=== PATIENT | male | born 1985 | race Caucasian/White ===

== ENCOUNTER 2018-11-13 00:40 | Emergency (ER) | payer OTHER ==
[2018-11-13] MEDS ORDERED: NS 1,000 ML IV ONE (00:45)
[2018-11-13] MEDS ORDERED: OLANZapine DISINTEGR 5 MG TAB PO ONE (00:45)
[2018-11-13] MEDS ORDERED: OLANZapine 10 MG/2 ML VIAL IM ONE (00:48)
--- NOTE | 2018-11-13 00:48 | EDPHY ---
H & P Source: Patient, Police, EMS - Medical/Surgical History Hx Asthma: No Hx Chronic Respiratory Disease: No Hx Diabetes: No Hx Cardiac Disease: No Hx Renal Disease: No Hx Cirrhosis: No Hx Alcoholism: No Other PMH: Herniated disc - Social History Smoking Status: Never smoked Time Seen by Provider: 11/13/18 00:45 HPI/ROS: HPI CHIEF COMPLAINT: Substance abuse, alcohol intoxication, agitated behavior, M1 hold by police ?Psychosis HISTORY OF PRESENT ILLNESS: Patient 33-year-old male, presents emergency room intoxicated with alcohol, possibly other substances. Neighbors called 911, the patient has a history of PTSD, reports alcohol tonight, unknown other substance. When I go to evaluate the patient denies any complaints to me however states that nothing is wrong. He denies taking anything tonight. He arrives to the emergency room in handcuffs in police custody. Arrive somewhat agitated. Refused to answer many questions. Appears intoxicated. Neighbors called 911 for noise disturbance. Past Medical History: PTSD. ?psychosis Past Surgical History: Unknown surgical history Social History: alcohol this evening. Possible other substance. Family History: Noncontributory ROS REVIEW OF SYSTEMS: Limited due to mental state, limited due to intoxication Exam Constitutional intoxicated, smells of alcohol, triage nursing summary reviewed , vital signs reviewed, awake/alert. Eyes normal conjunctivae and sclera, EOMI, PERRLA. 6 mm equal minimally reactive to light, HENT normal inspection, atraumatic, moist mucus membranes, no epistaxis, neck supple/ no meningismus, no raccoon eyes. Respiratory clear to auscultation bilaterally, normal breath sounds, no respiratory distress, no wheezing. Cardiovascular rate normal, regular rhythm, no murmur, no edema, distal pulses normal. Gastrointestinal soft, non-tender, no rebound, no guarding, normal bowel sounds, no distension, no pulsatile mass. Genitourinary no CVA tenderness. Musculoskeletal no midline vertebral tenderness, full range of motion, no calf swelling, no tenderness of extremities, no meningismus, good pulses, neurovascularly intact. Skin pink, warm, & dry, no rash, skin atraumatic. Neurologic awake and alert, somewhat agitated, moves everything, Psychiatric normal mood/affect. Heme/Lymph/Immune no lymphadenopathy. Differential Diagnosis: Includes but is not limited to in a particular order acute psychosis, drug intoxication, alcohol intoxication, LSD, methamphetamine Medical Decision Making: Plan for this patient IV establishment IV fluid bolus , cardiac/vascular sonographer, pulse ox, Zyprexa, IV fluids, basic labs, re-evaluate. Re-evaluation: 407: Patient acutely agitated. Ordered 2 mg p.o. Ativan. Patient received Zyprexa earlier. Patient re-evaluated 4:20 a.m.. Patient was sleeping. Resting comfortably. 0636AM: Signed over to Dr. Olmedo at 7am. Pending eval. (Hilario Blair) Constitutional: Initial Vital Signs Temperature (C) 36.8 C 11/13/18 00:40 Heart Rate 112 H 11/13/18 00:40 Respiratory Rate 20 11/13/18 00:40 Blood Pressure 140/75 H 11/13/18 00:40 O2 Sat (%) 95 11/13/18 00:40 O2 Delivery Mode Room Air Allergies/Adverse Reactions: cefaclor [From Ceclor] Allergy (Verified 11/13/18 00:54) Home Medications: Medication Instructions Recorded oxyCODONE/APAP 5/325 [Percocet 1 tab PO Q6 #7 tab 02/26/18 5/325] Medical Decision Making Other Provider: [address] Blair pending re-evaluation. 11:15 patient has been seen by Adam, mental health case planner. Patient is not suicidal homicidal. He is vanessa for safety. Does have a history of PTSD. He is currently medicated appropriately. He is vanessa for safety. He has follow-up available at the [facility]. Will discharge with outpatient follow-up. (Herman Olmedo) - Data Points Laboratory Results: Laboratory Results 11/13/18 01:10 11/13/18 01:10 11/13/18 11/13/18 11/13/18 04:30 01:10 01:10 WBC 7.67 10^3/uL 10^3/uL (3.80-9.50) RBC 3.99 10^6/uL L 10^6/uL (4.40-6.38) Hgb 12.3 g/dL L g/dL (13.7-17.5) Hct 36.0 % L % (40.0-51.0) MCV 90.2 fL fL (81.5-99.8) MCH 30.8 pg pg (27.9-34.1) MCHC 34.2 g/dL g/dL (32.4-36.7) RDW 13.1 % % (11.5-15.2) Plt Count 215 10^3/uL 10^3/uL (150-400) MPV 10.1 fL fL (8.7-11.7) Neut % (Auto) 57.8 % % (39.3-74.2) Lymph % (Auto) 28.4 % % (15.0-45.0) Cherry % (Auto) 10.2 % % (4.5-13.0) Eos % (Auto) 2.7 % % (0.6-7.6) Baso % (Auto) 0.8 % % (0.3-1.7) Nucleat RBC Rel Count 0.0 % % (0.0-0.2) Absolute Neuts (auto) 4.43 10^3/uL 10^3/uL (1.70-6.50) Absolute Lymphs (auto) 2.18 10^3/uL 10^3/uL (1.00-3.00) Absolute Monos (auto) 0.78 10^3/uL 10^3/uL (0.30-0.80) Absolute Eos (auto) 0.21 10^3/uL 10^3/uL (0.03-0.40) Absolute Basos (auto) 0.06 10^3/uL 10^3/uL (0.02-0.10) Absolute Nucleated RBC 0.00 10^3/uL 10^3/uL (0-0.01) Immature Gran % 0.1 % % (0.0-1.1) Immature Gran # 0.01 10^3/uL 10^3/uL (0.00-0.10) Sodium 137 mEq/L mEq/L (135-145) Potassium 4.1 mEq/L mEq/L (3.5-5.2) Chloride 105 mEq/L mEq/L (97-110) Carbon Dioxide 19 mEq/l L mEq/l (22-31) Anion Gap 13 mEq/L mEq/L (6-14) BUN 20 mg/dL mg/dL (7-23) Creatinine 1.2 mg/dL mg/dL (0.7-1.3) Estimated GFR > 60 Glucose 119 mg/dL H mg/dL (70-100) Calcium 9.1 mg/dL mg/dL (8.5-10.4) Salicylates < 1.0 mg/dL L mg/dL 1.4 mg/dL L mg/dL (2.0-20.0) (2.0-20.0) Urine Opiates Screen Acetaminophen < 10 mcg/mL L mcg/mL 15 mcg/mL mcg/mL (10-30) (10-30) Urine Barbiturates Ur Phencyclidine Scrn Ur Amphetamine Screen U Benzodiazepines Scrn Urine Cocaine Screen U Marijuana (THC) Screen Ethyl Alcohol 51 mg/dL H mg/dL (0-10) 11/13/18 00:45 WBC RBC Hgb Hct MCV MCH MCHC RDW Plt Count MPV Neut % (Auto) Lymph % (Auto) Cherry % (Auto) Eos % (Auto) Baso % (Auto) Nucleat RBC Rel Count Absolute Neuts (auto) Absolute Lymphs (auto) Absolute Monos (auto) Absolute Eos (auto) Absolute Basos (auto) Absolute Nucleated RBC Immature Gran % Immature Gran # Sodium Potassium Chloride Carbon Dioxide Anion Gap BUN Creatinine Estimated GFR Glucose Calcium Salicylates Urine Opiates Screen NEGATIVE (NEGATIVE) Acetaminophen Urine Barbiturates NEGATIVE (NEGATIVE) Ur Phencyclidine Scrn NEGATIVE (NEGATIVE) Ur Amphetamine Screen NEGATIVE (NEGATIVE) U Benzodiazepines Scrn NEGATIVE (NEGATIVE) Urine Cocaine Screen NEGATIVE (NEGATIVE) U Marijuana (THC) Screen NON-NEGATIVE H (NEGATIVE) Ethyl Alcohol Medications Given: Discontinued Medications Sodium Chloride (Ns) 1,000 mls @ 0 mls/hr IV EDNOW ONE; Wide Open PRN Reason: Protocol Stop: 11/13/18 00:46 Last Admin: 11/13/18 01:34 Dose: 1,000 mls Lorazepam (Ativan) 2 mg PO ONCE ONE Stop: 11/13/18 03:22 Last Admin: 11/13/18 03:25 Dose: 2 mg Olanzapine (Zyprexa Zydis) 5 mg PO EDNOW ONE Stop: 11/13/18 00:46 Last Admin: 11/13/18 01:26 Dose: Not Given Olanzapine (Zyprexa Injection) 5 mg IM EDNOW ONE Stop: 11/13/18 00:49 Last Admin: 11/13/18 01:13 Dose: 5 mg Departure - Departure Disposition: Home, Routine, Self-Care Clinical Impression: PTSD (post-traumatic stress disorder) Condition: Fair Instructions: Post Traumatic Stress Disorder (ED) Additional Instructions: Follow up with physicians at the [facility] in 2-3 days for further evaluation. Return to the emergency department for increasing depression, thoughts of harming herself or others, hopelessness, or any other concerns. Referrals: Patient,NotPresent [Unknown] - As per Instructions
[2018-11-13 01:26] LABS: PLATELET COUNT 215 10^3/uL (150-400)
[2018-11-13] MEDS ORDERED: LORazepam 1 MG TAB PO ONE (03:21)
[2018-11-13] MEDS ORDERED: LORazepam 1 MG TAB ONE (03:22)
[2018-11-13 11:30] VITALS: BP 145/86
--- NOTE | 2018-11-13 12:32 | ASMTTLCEVL ---
TLC Evaluation - Basic Information Evaluation Start Date and 11/13/2018 10:35 AM Time Hospital Status Answers: M1 Hold 72-hr M1 Hold Start Date 11/12/2018 11:42 PM and Time Patient statement Notes: I was kind of out of it last night. I was walking around town and the pals nurse kept fucking with me. Narrative Notes: Pt is a 33 yo, single, disabled ([place]), male, with reported history of PTSD, brought to [facility] ED by [employer] on M1 hold which noted: respondent yelling, throwing items and listening to music loudly. Respondent, when contacted, was highly agitated and speaking nonsensical. After talking further it was learned respondent had mental health issues due to service. Alcohol & possibly drugs involved. Respondent was cooperative with police, however he was not acting in an appropriate manner. Respondent stated he wanted to go the [facility] and get help. Per ED report, neighbors reportedly had called 911 due to pt yelling etc. BAL upon arrival last night was .051 at 0110 hrs. UDS results were positive for marijuana. Pt appeared clean, somewhat disheveled, with very well-developed physique from being in the [facility] and current exercise/weight lifting routines. He had a few tattoos on his upper body. Pt denied having any recent/current suicidal ideation/intent/plans to kill himself. Pt reported having seen a new [facility] psychiatrist recently, but could not recall the name/date of that visit. Piper Salazar at the [facility] [phone] confirmed that pt had seen [facility] psychiatrist, Dr. Trujillo on 08/14/18. She added that pt has next appointment with a different [facility] psychiatrist on 12/09/18 at 2 pm. [facility] at 2 pm. Piper Salazar added that should pt want/need to be seen sooner, he can appear at the [facility] as a walk-in. Diagnosis History Notes: Pt reported being diagnosed with PTSD in 2007. Prior suicide attempts Notes: Pt denied any past history of suicide attempts. Prior hospitalizations Notes: Pt reported a history of 5 previous psychiatric hospitalizations at the [facility], with most recent occurring 2 years ago. Treatment Responses Notes: Pt reported medication compliant. History of violence Notes: Pt denied any history of violence as a civilian. Pt denied having any past/recent/current homicidal ideation/intent/plans to harm anyone. Therapist: None. Psychiatrist: Pt reported having seen a new [facility] psychiatrist recently, but could not recall the name/date of that visit. Piper Salazar at the [facility] [phone] confirmed that pt had seen [facility] psychiatrist, Dr. Trujillo on 08/14/18. Medications (name, dosage, route, freq uency) Notes: Piper Salazar at [facility] reported that pt home medications include: Risperdal 5 mg po at HS; Zoloft 50 mg po daily, to increase to 100 mg po daily at next visit; and diphenhydramine 25-50 mg po at HS. Allergies/Reaction Notes: NKDA. Sleep Notes: Pt reported having decreased sleep lately, but denied having frequent nightmares/flashbacks. Appetite Notes: Pt reported having somewhat decreased appetite lately. Medical/Surgical history Notes: Pt reported having a left shoulder labrum surgical repair in 2004 from injury sustained while weight lifting. Otherwise, unremarkable. Substance use history (frequency, intensity, his tory, duration) Notes: Pt reported he first tried alcohol at age 18. He reported that his current pattern of consumption is to have perhaps a couple of beers on a weekly basis, with last use reported was having a beer yesterday evening. He reported having first tried marijuana at age 16 and that his current use pattern is to smoke it daily, approximately an eighth gram daily, with last use being yesterday. He otherwise denied history of use of any other illicit substances. BAL upon arrival last night was .051 at 0110 hrs. UDS results were positive for marijuana. Family composition Notes: Pt reported that his parents when pt was 10 yo. Both parents are still alive and reside in [place]. Pt reported he has a 30 yo brother that lives in [place] and a 27 yo sister that lives in [place]. Need for family Answers: No participation in patient's care Family psychiatric/substance abuse history Notes: Pt denied knowledge of any family history of mental illness or substance abuse concerns. Developmental history Notes: Pt reported he was born and grew up in [place], [place]. He endorsed having achieved normal childhood developmental milestones. He denied any childhood history of TBIs, LOC or concussions. He denied having any history of learning difficulties or ADD/ADHD. He denied any childhood experience of physical, emotional or sexual abuse/trauma. Abuse concerns Answers: None Marital status/children Notes: Pt is single, never , no dependents. He reported he is not involved in a romantic relationship. Living situation Notes: Pt resides in an apartment in [place] by himself. Sexual history/orientation Notes: Heterosexual. Not active. Peer support/family strengths Notes: Pt reported that he has several friends at the [employer] [employer] that he considers his supports. Education level/history Notes: Pt reported that he attended 1 year at then transferred to [employer] in [place] and obtained his bachelors degree in human resources in 2011. Piper Salazar added that pt is also currently working toward a masters degree in Clinical Mental Health Management/Counseling. 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 He has been on disability benefits since 2011. 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 He is currently not working. 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 He has been on disability benefits since 2011. 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 He is currently not working. Legal Notes: Pt reported past history of obtaining a DUI. He also added I keep getting arrested for walking around on [address], but declined to elaborate any further with details. Sabianism/Spiritual Notes: Pt reported he is Adventism. Leisure Notes: Pt reported he enjoys exercising at the gym and walking. Collateral Notes: Piper Salazar at the [facility] [phone] . Patient's strengths Answers: Athletic (Please select at least TWO strengths): Funny/Using Humor Honest Insightful Intelligent Motivated for Treatment Willingness TLC Evaluation - Mental Status Exam Appearance: Answers: Clean Unkempt Eye Contact: Answers: Good/Direct Mood: Answers: Irritable Affect: Answers: Apprehensive Calm Congruent w/ Mood Constricted Irritable Behavior: Answers: Cooperative Fatigued Restless Speech: Answers: Relevant Logical Clear Coherent Thought Process: Answers: Organized Oriented Alert Goal Oriented Intact Insight: Answers: Good Judgement: Answers: Good Manic Signs/Symptoms Answers: Impulsivity Irritability Depression Answers: Difficulty Concentrating Signs/Symptoms: Diminished Pleasure Flat Affect Psychomotor Agitation Hallucinations: Answers: None Current Stage of Change Answers: Maintenance Preparation Pt reported to have Answers: No suicidal/self-injuring ideation/behavior? Pt reported to be making Answers: No suicidal/self-injuring threats? Pt reported to have Answers: No aggression/assault ideation/behavior? Pt reported to be making Answers: No aggression/assault threats? Pt exhibits inability to Answers: No care for self/grave disability? Ideation/behavior is Answers: No chronic? Patient has a specific Answers: No plan? Pt has access to means to Answers: No execute the plan? Ideation involves Answers: No serious/lethal intent? Ideation has Answers: No delusional/hallucinatory content? History of Answers: No suicidal/self-injuring ideation, behavior, or threats? History of Answers: No aggressive/assaultive ideation, behavior, or threats? History of serious Answers: No physical harm to self/others while in treatment setting? [facility] Evaluation - Suicide/Homicide Risk Suicide Risk Factors: Answers: Agitation Flat Affect Impulsivity Lack/Loss of Employment Single Homicide/violence risk Answers: None factors: Current Suicidal Answers: No Ideation? Current Suicidal Ideation Answers: No in the Past 48 Hours? Current Suicidal Ideation Answers: No in the Past Month? Current Suicidal Answers: No Ideation, Worst Ever? Suicide Internal Answers: Absence of Psychosis Protective Factors: Ryan with Stress Sabianism Beliefs Suicide External Answers: Positive Therapeutic Protective Factors: Relationships Social Support Ranking of patient's Answers: Low suicidal risk: Ranking of patient's Answers: Low homicidal risk: TLC Evaluation - Wrap-up BDI Total Score: 24 BDI Question #2 Score: 0 BDI Question #9 Score: 0 BSS Total Score: 0 AXIS I Diagnosis (include DSM-V and ICD-10 codes), must also be entered in [employer], which is the source of truth. Notes: Posttraumatic Stress Disorder 309.81 (F43.10) In consultation with [facility] ED physician, Rojas Olmedo MD, Dr. Olmedo concurred that pt does not appear to meet 27-65 criteria requiring psychiatric hospitalization as pt does not appear to be an imminent risk of harm to self/others/gravely disabled due to a mental illness condition. Dr. Olmedo provided verbal order read back vacating M1 hold at 1110 hrs. Evaluation End Date and 11/13/2018 12:30 PM Time (HH:MM): Date Signed: 11/13/2018 12:31 PM Electronically Signed By:Adam Scott
--- NOTE | 2018-11-13 12:33 | ASMTTCLDSP ---
TLC Discharge Disposition Disposition Notes: Notes: Pt stated commitment or ability to keep self safe, denied thoughts of self harm or harm to others. Pt expressed a desire to f/u with scheduled appointments he has at the [facility]. Pt was given local hotline information and [facility] brochure After an Attempt. Piper Salazar at the [facility] [phone] confirmed that pt had seen [facility] psychiatrist, Dr. Trujillo on 08/14/18. She added that pt has next appointment with a different [facility] psychiatrist on 12/09/18 at 2 pm. [facility] at 2 pm. Piper Salazar added that should pt want/need to be seen sooner, he can appear at the [facility] as a walk-in. Discharge Concerns/Recommendations: Notes: In consultation with [facility] ED physician, Rojas Olmedo MD, Dr. Olmedo concurred that pt does not appear to meet 27-65 criteria requiring psychiatric hospitalization as pt does not appear to be an imminent risk of harm to self/others/gravely disabled due to a mental illness condition. Dr. Olmedo provided verbal order read back vacating M1 hold at 1110 hrs. Was patient given the Answers: Not applicable Inpatient Behavioral Health Prohibited Belongings List while in the ED? Psychiatrist vacating M1 Rojas Olmedo MD Hold: Date and time M1 hold 11/13/2018 11:10 AM vacated (time format is hh:mm): Type of Hold: Answers: M1/72-hour Hold Hold initiated by: Answers: Police Date Signed: 11/13/2018 12:33 PM Electronically Signed By:Adam Scott
== END 2018-11-13 11:31 | disposition home or self-care (01) ==
LOC: EDUNIT#
DX: F43.10 Post-traumatic stress disorder, unspecified (principal); F10.920 Alcohol use, unspecified with intoxication, uncomplicated; E86.9 Volume depletion, unspecified
CPT/HCPCS: 80305; G0480

== ENCOUNTER 2018-11-16 13:33 | Emergency (ER) | payer OTHER ==
[2018-11-16] MEDS ORDERED: HALOPERIDOL LACT 5 MG/ML INJ IVP ONE (13:42)
[2018-11-16] MEDS ORDERED: MIDAZOLAM 2 MG/2 ML VIAL IVP ONE (13:43)
[2018-11-16] MEDS ORDERED: HALOPERIDOL LACT 5 MG/ML INJ ONE (13:43)
[2018-11-16] MEDS ORDERED: MIDAZOLAM 2 MG/2 ML VIAL ONE (13:44)
[2018-11-16 13:51] LABS: PLATELET COUNT 267 10^3/uL (150-400)
[2018-11-16] MEDS ORDERED: NS 1,000 ML IV ONE (13:56)
--- NOTE | 2018-11-16 13:56 | EDPHY ---
H & P Time Seen by Provider: 11/16/18 13:35 HPI/ROS: HPI Combative behavior. 33-year-old male brought to the emergency department with [place] police and EMS. [place] police were called to the street for a welfare check. This patient was noted to be smoking something from a pipe. When the police matron spoke to him he quickly escalated and became violent. He was threatening bystanders and people passing by. EMS was then called to the scene and he was brought to the emergency department. He was spitting on the EMS personnel and had to have a net placed over his head. He is floridly psychotic on arrival. He appears to be hallucinating. He will not admit to any IV drugs or street drugs or alcohol. There is no history of trauma. ROS: Constitutional: No fever, no chills. As above. Eyes: No discharge. No changes in vision. ENT: No sore throat. No nasal congestion or rhinorrhea. Respiratory: No cough. No shortness of breath. Cardiac: No chest pain, no palpitations. Gastrointestinal: No abdominal pain, no vomiting, no diarrhea. Genitourinary: No hematuria. No dysuria or increased frequency with urination. Musculoskeletal: No back pain. No neck pain. No myalgias or arthralgias. Skin: No rashes. Neurological: No headache. No focal weakness or altered sensation. Past medical history: PTSD. Social history: He states he is a former [employer]. He is currently here by himself. Currently denying IV drug street drugs and alcohol. States he does not smoke. States he lifts weights and take steroids. Physical Exam: General Appearance: Alert, hallucinating, agitated but not hostile toward staff currently. This patient is responding to questions intermittently with yes or no answers. He is speaking to people who are not there. He is intermittently laughing. This patient appears well-hydrated and well-nourished. Eyes: Pupils equal and round and reactive to light at 3-2 mm bilaterally, no pallor or injection. No lid edema, erythema or injection. Head: Normocephalic atraumatic. Respiratory: There are no retractions, lungs are clear to auscultation with good air movement bilaterally. Cardiovascular: Regular rate and rhythm. No murmur. Gastrointestinal: Abdomen is soft and nontender, no masses, bowel sounds normal. No focal tenderness at McBurney's point. No Kingston sign. Neurological: Motor sensory function is grossly intact. Cranial nerves are normal. Gait is normal. Skin: Warm and dry, no rashes. Musculoskeletal: Neck is supple and nontender. Extremities are symmetrical. All joints range without pain or impingement. Psychiatric: No agitation. No depression. Database: EKG: Imaging: Procedures: Emergency department course: Triage vitals reviewed. An IV was placed per EMS. Standard blood work sent to the lab. Urine tox screen to be obtained if possible. Secondary to his psychosis and the potential for him to be very dangerous toward staff he will be given 10 mg of IV Haldol and 2 mg of IV Versed for sedation. Plan will be to let him sleep for oral awhile and metabolize whatever it is that he took and then reassess. 2:10 p.m., patient re-evaluated, sleeping but easily arousable, cardiac catheterization technician shows a narrow complex sinus rhythm with ventricular rate of 78. Blood pressure 122/77. Pulse oximetry is 97% on 2 L of nasal cannula oxygen. 4:40 p.m., the patient was re-evaluated. He is now awaken sober. He is answering questions appropriately. He tells me he was just smoking some marijuana. 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 He is eating a meal. He states that he lives in [place] and has an apartment to go home to. He is not suicidal. He sees feel safe returning to his home. I feel this is reasonable. Follow-up and return to emergency department precautions reviewed with him. All of his questions were answered. He was discharged from the emergency department in good condition. Differential Diagnosis: The differential diagnosis on this patient includes but is not limited to methamphetamine versus PCP induced psychosis. Meningitis, encephalitis, alcohol withdrawal, traumatic brain injury unlikely. This represents a partial list of diagnoses considered. These considerations are based on history, physical exam, past history, reassessment and diagnostic testing. Smoking Status: Never smoked Constitutional: Initial Vital Signs Heart Rate 90 11/16/18 13:33 Respiratory Rate 24 H 11/16/18 13:33 Blood Pressure 133/75 H 11/16/18 13:33 O2 Sat (%) 94 11/16/18 13:33 O2 Delivery Mode Nasal Cannula O2 (L/minute) 4 Allergies/Adverse Reactions: cefaclor [From [facility]] Allergy (Verified 11/16/18 14:07) Medical Decision Making - Data Points Laboratory Results: Laboratory Results 11/16/18 13:47 11/16/18 13:47 11/16/18 11/16/18 11/16/18 16:36 13:47 13:47 WBC 6.34 10^3/uL 10^3/uL (3.80-9.50) RBC 4.52 10^6/uL 10^6/uL (4.40-6.38) Hgb 13.8 g/dL g/dL (13.7-17.5) Hct 40.0 % % (40.0-51.0) MCV 88.5 fL fL (81.5-99.8) MCH 30.5 pg pg (27.9-34.1) MCHC 34.5 g/dL g/dL (32.4-36.7) RDW 13.5 % % (11.5-15.2) Plt Count 267 10^3/uL 10^3/uL (150-400) MPV 9.8 fL fL (8.7-11.7) Neut % (Auto) 54.5 % % (39.3-74.2) Lymph % (Auto) 31.1 % % (15.0-45.0) Glynn % (Auto) 9.1 % % (4.5-13.0) Eos % (Auto) 3.9 % % (0.6-7.6) Baso % (Auto) 1.1 % % (0.3-1.7) Nucleat RBC Rel Count 0.0 % % (0.0-0.2) Absolute Neuts (auto) 3.45 10^3/uL 10^3/uL (1.70-6.50) Absolute Lymphs (auto) 1.97 10^3/uL 10^3/uL (1.00-3.00) Absolute Monos (auto) 0.58 10^3/uL 10^3/uL (0.30-0.80) Absolute Eos (auto) 0.25 10^3/uL 10^3/uL (0.03-0.40) Absolute Basos (auto) 0.07 10^3/uL 10^3/uL (0.02-0.10) Absolute Nucleated RBC 0.00 10^3/uL 10^3/uL (0-0.01) Immature Gran % 0.3 % % (0.0-1.1) Immature Gran # 0.02 10^3/uL 10^3/uL (0.00-0.10) Sodium 137 mEq/L mEq/L (135-145) Potassium 4.3 mEq/L mEq/L (3.5-5.2) Chloride 103 mEq/L mEq/L (97-110) Carbon Dioxide 23 mEq/l mEq/l (22-31) Anion Gap 11 mEq/L mEq/L (6-14) BUN 17 mg/dL mg/dL (7-23) Creatinine 1.2 mg/dL mg/dL (0.7-1.3) Estimated GFR > 60 Glucose 96 mg/dL mg/dL (70-100) Calcium 10.0 mg/dL mg/dL (8.5-10.4) Urine Opiates Screen Pending Urine Barbiturates Pending Ur Phencyclidine Scrn Pending Ur Amphetamine Screen Pending U Benzodiazepines Scrn Pending Urine Cocaine Screen Pending U Marijuana (THC) Screen Pending Ethyl Alcohol < 10 mg/dL mg/dL (0-10) Medications Given: Discontinued Medications Haloperidol Lactate (Haldol Injection) 10 mg IVP EDNOW ONE Stop: 11/16/18 13:43 Last Admin: 11/16/18 13:59 Dose: 10 mg Sodium Chloride (Ns) 1,000 mls @ 0 mls/hr IV EDNOW ONE; Wide Open PRN Reason: Protocol Stop: 11/16/18 13:57 Last Admin: 11/16/18 14:00 Dose: 1,000 mls Midazolam HCl (Versed) 2 mg IVP EDNOW ONE Stop: 11/16/18 13:44 Last Admin: 11/16/18 13:51 Dose: 2 mg Departure - Departure Disposition: Home, Routine, Self-Care Clinical Impression: Psychosis, Psychosis, transient Condition: Good Instructions: Altered Mental Status (ED) Additional Instructions: Read and follow provided instructions. Follow-up with your primary care physician in 1-2 days at the [place] for re- evaluation as needed. Do not drink alcohol or take drugs. Return to the emergency department for worsening symptoms or other serious concerns. Referrals: Patient,NotPresent [Primary Care Provider] - As per Instructions
[2018-11-16 16:46] VITALS: BP 114/94
== END 2018-11-16 17:05 | disposition home or self-care (01) ==
LOC: EDUNIT#
DX: F29 Unspecified psychosis not due to a substance or known physiological condition (principal); E86.9 Volume depletion, unspecified
CPT/HCPCS: 80305; 96374; G0480; J1630; J2250

== ENCOUNTER 2018-11-21 11:35 | Emergency (ER) | payer OTHER ==
--- NOTE | 2018-11-21 11:42 | EDPHY ---
H & P - Medical/Surgical History Hx Asthma: No Hx Chronic Respiratory Disease: No Hx Diabetes: No Hx Cardiac Disease: No Hx Renal Disease: No Hx Cirrhosis: No Hx Alcoholism: No Other PMH: Herniated disc - Social History Smoking Status: Never smoked Time Seen by Provider: 11/21/18 11:41 Constitutional: Initial Vital Signs Temperature (C) 36.6 C 11/21/18 11:35 Heart Rate 69 11/21/18 11:35 Respiratory Rate 16 11/21/18 11:35 Blood Pressure 150/100 H 11/21/18 11:35 O2 Sat (%) 95 11/21/18 11:35 O2 Delivery Mode Room Air Allergies/Adverse Reactions: cefaclor [From [facility]] Allergy (Verified 11/16/18 14:07) Penicillins Allergy (Verified 11/21/18 11:42) Home Medications: Medication Instructions Recorded Advil 11/21/18 Medical Decision Making ED Course/Re-evaluation: CHIEF COMPLAINT: Psychiatric evaluation HISTORY OF PRESENT ILLNESS: The patient is a 33 y/o male with a history of PTSD arriving on an M1 hold by [place] [employer] for a psychiatric evaluation. The patient states "I'm dehydrated and I need a saline drip". He also reports "I take a lot of steroids". He denies taking meth for 2.5 years. He denies homicidal or suicidal ideations. REVIEW OF SYSTEMS: Unable to obtain due to patient's aggressive mental status. PHYSICAL EXAM: General Appearance: Alert, well hydrated, appropriate, and non-toxic appearing. Head: Atraumatic without scalp tenderness or obvious injury Eyes: Pupils equal, round, reactive to light and accommodation, EOMI, no trauma , no injection. Ears: Clear bilaterally, no perforation, normal landmarks Nose: Atraumatic, no rhinorrhea, clear. Throat: There is no erythema or exudates, no lesions, normal tonsils, mucus membranes moist. Neck: Supple, 2+ carotid upstroke, nontender, no lymphadenopathy. Respiratory: No retractions, no distress, no wheezes, and no accessory muscle use. Lungs are clear to auscultation bilaterally. Cardiovascular: Regular rate and rhythm, no murmurs, rubs, or gallops. Bilateral carotid, radial, dorsalis pedis, and posterior tibial pulses intact. Good capillary refill all extremities. Gastrointestinal: Abdomen is soft, nontender, non-distended, no masses, no rebound, no guarding, no peritoneal signs. Musculoskeletal: Normal active ROM of all extremities, atraumatic. Neurological: Alert, appropriate, and interactive. The patient has normal DTRs and non-focal cranial nerves, motor, sensory, and cerebellar exam. Skin: No rashes, good turgor, no nodules on palpation. Psych: Illogical thoughts, shouting, screaming, and over-talkative. 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 MEDICAL DECISION MAKING: The patient is a 33 y/o male with a history of PTSD arriving on an M1 hold by [place] [employer] for a psychiatric evaluation. The patient states "I'm dehydrated and I need a saline drip". He also reports "I take a lot of steroids". Patient is aggressive, shouting, and screaming. He denies homicidal or suicidal ideations. Patient is comfortable with an IV. 1L IV NS, 10 mg IV Haldol and 2mg IV Ativan administered. Patient is in no acute distress and is hemodynamically stable. We are awaiting psychiatric team's evaluation. Patient has known history of psychiatric disorders and is here for evaluation. 1204: Patient is still aggressive and combative; additional 10mg IV Haldol administered. 1209: Patient's eyes are half-mast and states that he "feels high". 1242: Patient is somnolent after medication; we are awaiting psych eval. 1500: Patient care has been turned over to Dr. Turner at shift change. Mental health eval pending. (Josias Dyer) 1500: I assumed care of this patient at shift change. He presents with homicidal ideation on an M1 hold. He has received Haldol 20 mg IV and Ativan 2 mg IV. Awaiting mental health evaluation. 2100: seen by , plan to re-eval in am. 2300: signed over to Dr. Varghese at shift change. (Ksenia Turner) 7:00 a.m.- Patient has been stable throughout my shift. Case is signed out to Dr. Carvalho pending mental health re-evaluation. (Erica Varghese) Other Provider: Care assumed at 6:45 a.m., patient with history of PTSD who arrived with agitated behavior. Plan for psychiatric evaluation. 1043: Patient had psychiatric evaluation and is the recommendation of the electric appliance installer and the psychiatrist Dr. Campos that he be discharged. He currently is not actively homicidal or gravely disabled or suicidal. He will have follow up with the [facility] for his PTSD. The hold lifted by Dr. Campos. (Lebron Carvalho) - Data Points Laboratory Results: Laboratory Results 11/21/18 12:39 11/21/18 12:39 Medications Given: Discontinued Medications Haloperidol Lactate (Haldol Injection) 10 mg IVP EDNOW ONE Stop: 11/21/18 12:03 Last Admin: 11/21/18 12:02 Dose: 10 mg Haloperidol Lactate (Haldol Injection) 10 mg IVP EDNOW ONE Stop: 11/21/18 12:07 Last Admin: 11/21/18 12:06 Dose: 10 mg Lorazepam (Ativan Injection) 2 mg IVP EDNOW ONE Stop: 11/21/18 12:03 Last Admin: 11/21/18 12:02 Dose: 2 mg Departure - Departure Disposition: Home, Routine, Self-Care Clinical Impression: PTSD (post-traumatic stress disorder) Psychosis Qualifiers: Psychosis type: unspecified psychosis type Qualified Code(s): F29 - Unspecified psychosis not due to a substance or known physiological condition Condition: Good Instructions: Post Traumatic Stress Disorder (ED) Referrals: NONE *PRIMARY CARE P,. [Primary Care Provider] - As per Instructions (your PCP at [facility]) Report Scribed for: Josias Dyre Report Scribed by: Conchis Strickland Date of Report: 11/21/18 Time of Report: 13:20
[2018-11-21] MEDS ORDERED: LORazepam 2 MG/ML INJ ONE (11:59)
[2018-11-21] MEDS ORDERED: HALOPERIDOL LACT 5 MG/ML INJ ONE ×2 (11:59→12:04)
[2018-11-21] MEDS ORDERED: HALOPERIDOL LACT 5 MG/ML INJ IVP ONE ×2 (12:02→12:06)
[2018-11-21] MEDS ORDERED: LORazepam 2 MG/ML INJ IVP ONE (12:02)
[2018-11-21 12:48] LABS: PLATELET COUNT 215 10^3/uL (150-400)
[2018-11-22 07:56] VITALS: BP 148/86
--- NOTE | 2018-11-22 11:12 | ASMTCMCOM ---
CM Note CM Note Notes: [facility] resources provided after discussing case with [facility]. Date Signed: 11/22/2018 11:11 AM Electronically Signed By:Nina Barahona LCSW
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
--- NOTE | 2018-11-22 13:24 | ASMTTCLDSP ---
TLC Discharge Disposition Disposition: Answers: Discharge If Answers: Yes DISCHARGED: Patient/family given suicide hotline info & SAMHSA brochure? Disposition Notes: Notes: Pt denied being suicidal and homicidal and stated that he was safe to return home. Pt agreed to allow [facility], report that pt has been at the ED twice this month for psychiatric issues, and to recommend to them that they reach out to [facility] for records regarding these ED visits and associated mental health evaluations. Clinician [facility] contact the [facility] and relay this information. Clinician spoke to the [facility]'s national crisis line to report that pt had come to the ED for a mental health evaluation. Pt agreed to consider returning to therapy at [facility] counseling center. Pt was counseled re the effects of alcohol and other substances on his ability to remain regulated and safe. Pt was given [facility] associated crisis numbers by the ED's rn home care. Discharge Concerns/Recommendations: Notes: In consultation with [facility] ED physician,Dr Carvalho and on-call psychiatrist,Dr Campos , both concurred that Pt does not appear to meet 27-65 criteria requiring psychiatric hospitalization as Pt does not appear to be an imminent risk of harm to self due to a mental illness condition. Psychiatrist vacating M1 Dr Campos Hold: Date and time M1 hold 11/22/2018 10:46 AM vacated (time format is hh:mm): Type of Hold: Answers: M1/72-hour Hold Hold initiated by: Answers: Police Date Signed: 11/22/2018 01:23 PM Electronically Signed By:Beatris Edwards
== END 2018-11-22 11:06 | disposition home or self-care (01) ==
DX: F43.10 Post-traumatic stress disorder, unspecified (principal)
CPT/HCPCS: 80305; 96374; G0480; J1630; J2060